=== PATIENT | female | born 1955 | race Caucasian/White ===

== ENCOUNTER 2017-12-28 19:49 | Emergency (ER) | payer BC ==
[2017-12-28] MEDS ORDERED: Ibuprofen TAB* 600 MG PO ONE (20:21)
--- NOTE | 2017-12-28 20:36 | ED ---
Lower Extremity - HPI Summary HPI Summary: Patient comes complains of left ankle pain after twisting it while walking today. Denies any other pain or injuries, loss of sensation or function. - History of Current Complaint Chief Complaint: EDExtremityLower Stated Complaint: LT ANKLE PAIN Time Seen by Provider: 12/28/17 20:32 Hx Obtained From: Patient Mechanism Of Injury: Twisted Onset of Pain: Immediate Onset/Duration: Hours Severity Initially: Moderate Severity Currently: Moderate Pain Intensity: 5 Pain Scale Used: 0-10 Numeric Timing: Constant Location: Is Discrete @ Character Of Pain: Throbbing Associated Signs And Symptoms: Positive: Swelling Aggravating Factor(s): Ambulation, Weight Bearing Alleviating Factor(s): Rest Able to Bear Weight: Yes - Allergies/Home Medications Allergies/Adverse Reactions: Allergies Allergy/AdvReac Type Severity Reaction Status Date / Time Iodinated Contrast- Oral and Allergy Anaphylatic Verified 12/28/17 20:22 IV Dye Shock Sulfa (Sulfonamide Allergy Rash Verified 12/28/17 20:22 Antibiotics) Home Medications: Home Medications Famotidine TAB* [Pepcid 20 MG TAB*] 20 mg PO DAILY 12/28/17 [History Confirmed 12/28/17] PMH/Surg Hx/FS Hx/Imm Hx Endocrine/Hematology History: Denies: Hx Anticoagulant Therapy History: Denies: Hx Dialysis Neurological History: Denies: Hx Dementia - Cancer History Hx Chemotherapy: No Hx Radiation Therapy: No - Immunization History Immunizations Up to Date: Yes Infectious Disease History: No Infectious Disease History: Denies: Traveled Outside the [place] in Last 30 Days - Social History Alcohol Use: Occasionally Substance Use Type: Reports: None Smoking Status (MU): Never Smoked Tobacco Review of Systems Constitutional: Negative Eyes: Negative ENT: Negative Cardiovascular: Negative Respiratory: Negative Gastrointestinal: Negative Genitourinary: Negative Musculoskeletal: Other Skin: Negative Neurological: Negative Psychological: Normal All Other Systems Reviewed And Are Negative: Yes Physical Exam - Summary Physical Exam Summary: Mild swelling to lateral left ankle. PMS intact distally. No erythema, ecchymosis, extra warmth, deformity noted to left ankle. Flexion and extension intact and left knee without pain. Triage Information Reviewed: Yes Vital Signs On Initial Exam: Initial Vitals Temp Pulse Resp BP Pulse Ox 99.5 F 89 16 141/90 98 12/28/17 19:53 12/28/17 19:53 12/28/17 19:53 12/28/17 19:53 12/28/17 19:53 Vital Signs Reviewed: Yes Appearance: Positive: Well-Appearing Skin: Positive: Warm Head/Face: Positive: Normal Head/Face Inspection Eyes: Positive: Normal Neck: Positive: Supple Respiratory/Lung Sounds: Positive: Clear to Auscultation Cardiovascular: Positive: Normal Abdomen Description: Positive: Nontender Musculoskeletal: Positive: Normal Neurological: Positive: Normal Psychiatric: Positive: Normal AVPU Assessment: Alert - Argelia Coma Scale Best Eye Response: 4 - Spontaneous Best Motor Response: 6 - Obeys Commands Best Verbal Response: 5 - Oriented Coma Scale Total: 15 Procedures - Splinting 1 Location: left ankle Hand-Made Type: orthoglass Splint: posterior walking - and stirrup Pre-Proc Neuro Vasc Exam: normal Post-Proc Neuro Vasc Exam: normal Diagnostics - Vital Signs Vital Signs Temp Pulse Resp BP Pulse Ox 12/28/17 19:53 99.5 F 89 16 141/90 98 - Laboratory Lab Statement: Any lab studies that have been ordered have been reviewed, and results considered in the medical decision making process. - Radiology ankle Xray Interpretation: Positive (See Comments) - Distal left fibula fracture nondisplaced Radiology Interpretation Completed By: ED Physician Lower Extremity Course/Dx - Course Course Of Treatment: Patient comes complains of left ankle pain after twisting it while walking today. Denies any other pain or injuries, loss of sensation or function. Physical exam:Mild swelling to lateral left ankle. PMS intact distally. No erythema, ecchymosis, extra warmth, deformity noted to left ankle. Flexion and extension intact and left knee without pain. X-ray positive for distal left fibula fracture nondisplaced. Patient placed in posterior walking and stirrup splint follow-up with orthopedics. Patient supplied with crutches. No weightbearing. - Diagnoses Provider Diagnoses: Fracture of distal end of left fibula Discharge - Sign-Out/Discharge Documenting (check all that apply): Patient Departure - Discharge Plan Condition: Stable Disposition: HOME Patient Education Materials: Ankle Fracture (ED) Referrals: Tomas Carcamo MD [Primary Care Provider] - Kenneth Lopez MD [Medical Doctor] - Additional Instructions: No weightbearing. Ibuprofen for pain. Follow-up with orthopedics Dr. Lopez. Return to the ED for any new or worsening symptoms - Billing Disposition and Condition Condition: STABLE Disposition: Home
[2017-12-28 22:21] VITALS: BP 138/88
--- NOTE | 2017-12-29 07:46 | RAD ---
HISTORY: L ankle pain COMPARISONS: None VIEWS: 3 , Frontal, lateral, and oblique views of the left ankle FINDINGS: BONE DENSITY: Normal. BONES: There is a transverse nondisplaced fracture of the distal fibula with articular extension. JOINTS: There is no arthropathy. ALIGNMENT: There is no dislocation. The tibiotalar and fibular talar intervals are normal. SOFT TISSUES: Unremarkable. OTHER FINDINGS: None. IMPRESSION: TRANSVERSE NONDISPLACED FRACTURE OF THE DISTAL FIBULA R0
== END 2017-12-28 22:20 | disposition home or self-care (01) ==
LOC: ED 19:49
DX: S82.832A Other fracture of upper and lower end of left fibula, initial encounter for closed fracture (principal); M25.572 Pain in left ankle and joints of left foot; X50.9XXA Other and unspecified overexertion or strenuous movements or postures, initial encounter; Y93.01 Activity, walking, marching and hiking; Y92.9 Unspecified place or not applicable
CPT/HCPCS: 99282; A9270-GY

== ENCOUNTER 2019-03-02 07:59 | Emergency (ER) | payer BC ==
--- OUTSIDE RECORDS SUMMARY | 2019-03-02 08:03 | XMS REPORT | Continuity of Care Document ---
:1955 External Reference #:[id number] Author Name Karina Lyons O.D. Address [address] [place] [address] Care Team Providers Name Role Phone Tomas Carcamo M.D. - Endocrinology, Care Team Information [employer] [phone] Diabetes & Metabolism Problems Active Problems Provider Date Rosacea Onset: Herpes zoster Onset: Seasonal allergy Onset: Age related macular degeneration Karina Lyons O.D. Onset: 01/05/2015 Nuclear senile cataract Karina Lyons O.D. Onset: 01/05/2015 Retinal defect Karina Lyons O.D. Onset: 01/05/2015 Vitreous degeneration Natalya German O.D. Onset: 08/17/2015 Nonexudative age-related macular Natalya German O.D. Onset: 09/17/2015 degeneration Bilateral age-related nonexudative macular Karina Lyons O.D. 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 Onset: 03/2018 Social History Type Date Description Comments Sex Unknown ETOH Use Rarely consumes alcohol Tobacco Use Start: Unknown Patient has never smoked Recreational Drug Use Denies Drug Use Smoking Status Reviewed: 01/30/19 Patient has never smoked Allergies, Adverse Reactions, Alerts Active Allergies Reaction Severity Comments Date Iodinated Diagnostic Agents 01/03/2015 Sulfa Antibiotics 01/03/2015 Medications Active Medications SIG Qnty Indications Ordering Provider Date Preservision Areds 2 1 cap by mouth Karina Henry 01/04/2015 Areds twice a day Marisabel Lyons 2 Capsules Vitamin D Unknown 2000Unit Capsules Famotidine Unknown 20mg/2ML Solution Immunizations Description No Information Available Vital Signs Description No Information Available Results Description No Information Available Procedures Description No Information Available Medical Devices Description No Information Available Encounters Description No Information Available Assessments Date Code Description Provider 01/30/2019 H35.3131 Nonexudative age-related macular Karina Lyons O.D. degeneration, bilateral, ea 01/30/2019 H25.13 Age-related nuclear cataract, bilateral Karina Lyons O.D. 01/30/2019 H43.813 Vitreous degeneration, bilateral Karina Lyons O.D. 01/30/2019 H33.311 Horseshoe tear of retina without Karina Lyons O.D. detachment, right eye Plan of Treatment Future Appointment(s):02/03/2020 3:10 pm - Karina Lyons O.D. at [facility] - Karina Lyons O.D.H35.3131 Nonexudative age- related macular degeneration, bilateral, eaComments:CONTINUE TO USE AREDS 2 FORMULA VITAMINSCONTINUE TO CHECK AMSLER GRID 2 X A WEEKFollow up:1 Year Follow Up OCT MAC You can expect to have your eyes dilated at your next visit. If Dr. Lyons orders any additional testing, it may require extra time. We recommend that you bring sunglasses, as dilation drops often make you light sensitive until they wear off. We always recommend you bring someone to drive you home if you are uncomfortable driving with your eyes dilated. If you have any questions before your next visit, feel free to call our office at .H25.13 Age-related nuclear cataract, bilateralComments:You have been diagnosed with cataracts. If you are happy with your vision as it is now, then we willsee you at your next scheduled appointment. If you feel like your vision is getting worse before your scheduled appointment, please call [facility] at [phone].H43.814 Vitreous degeneration, bilateralComments:You have a Posterior Vitreous Detachment. Please read the pamphlet that was given to you. If you have any changes in your floaters or flashing lights, please contact this office.H33.311 Horseshoe tear of retina without detachment, right eyeComments: Smoking can increase the risk of developing or worsening any eye related disease , as well as affect your overall health. If you are a smoker, we strongly recommend that you quit.If you are not a smoker, we strongly recommend that you do not start. Functional Status Description No Information Available Mental Status Description No Information Available Referrals Description No Information Available
[2019-03-02 08:11] VITALS: BP 153/84
[2019-03-02] MEDS ORDERED: Tetracaine 0.5% OPTH.SOL 4 ML* 1 DROP BTL RIGHT EYE ONE (08:13)
[2019-03-02] MEDS ORDERED: Fluorescein Sodium TOPICAL* 1 MG TEST STRIP OPHTHALMIC ONE (08:13)
--- NOTE | 2019-03-02 08:20 | UC ---
Eye Complaint HPI - HPI Summary HPI Summary: 63-year-old female presents with plaints of right eye pain. States at approximately 6:00 this morning she was pulling up the quilt on her bed and accidentally struck herself in the right eye with the edge of the quilt. Complains of constant, sharp pain to the right eye with foreign body sensation, tearing, and photophobia. Denies blurred vision or double vision. - History of Current Complaint Chief Complaint: UCEye Stated Complaint: EYE COMPLAINT Time Seen by Provider: 03/02/19 08:13 Hx Obtained From: Patient Pain Intensity: 6 Eyes: 1 - Right eye 2 - Corneal abrasion - Allergies/Home Medications Allergies/Adverse Reactions: Allergies Allergy/AdvReac Type Severity Reaction Status Date / Time Iodinated Contrast Media Allergy Anaphylatic Verified 03/02/19 08:03 [Iodinated Contrast- Oral Shock and IV Dye] Sulfa (Sulfonamide Allergy Rash Verified 03/02/19 08:03 Antibiotics) PMH/Surg Hx/FS Hx/Imm Hx Previously Healthy: Yes GI/ History: Gastroesophageal Reflux Other History Of: Negative For: Anticoagulant Therapy - Surgical History Surgical History: Yes Surgery Procedure, Year, and Place: T&A. . bilat carpal tunnel. thumb release. jaw resection - Family History Known Family History: Positive: Non-Contributory - Social History Occupation: Employed Full-time Lives: With Family Alcohol Use: Occasionally Substance Use Type: None Smoking Status (MU): Never Smoked Tobacco Review of Systems All Other Systems Reviewed And Are Negative: Yes Constitutional: Positive: Negative Skin: Positive: Negative Eyes: Positive: Drainage - Tearing, Eye Redness, Photophobia. Negative: Blurred Vision, Diplopia ENT: Positive: Negative Respiratory: Positive: Negative Cardiovascular: Positive: Negative Gastrointestinal: Positive: Negative Genitourinary: Positive: Negative Musculoskeletal: Positive: Negative Neurological: Positive: Negative Is Patient Immunocompromised?: No Physical Exam - Summary Physical Exam Summary: GENERAL APPEARANCE: Well developed, well nourished, alert and cooperative, and appears to be in no acute distress. EYES: Left conjunctiva clear. No drainage. Right conjuctiva with mild erythema and tearing. PERRL, EOM intact. Vision is grossly intact. Tetracaine and fluorosceine were instilled into the right eye. Examination under magnification with a Wood's lamp showed a large circular corneal abrasion centrally that does extend over the visual field. No FB or penetrating injury noted. EARS: External auditory canals and tympanic membranes clear, hearing grossly intact. NOSE: No nasal discharge. THROAT: Pharynx normal. Surgically absent tonsils. Uvula midline. NECK: Neck supple, non-tender without lymphadenopathy. CARDIAC: Normal S1 and S2. No S3, S4 or murmurs. Rhythm is regular. There is no peripheral edema, cyanosis or pallor. Extremities are warm and well perfused. Capillary refill is less than 2 seconds. Peripheral pulses intact. LUNGS: Clear to auscultation without rales, rhonchi, wheezing or diminished breath sounds. ABDOMEN: Positive bowel sounds. Soft, nondistended, nontender. No guarding or rebound. No masses or hepatosplenomegally. MUSKULOSKELETAL: ROM intact to all extremities. No joint erythema or tenderness. Normal muscular development. Normal gait. SKIN: Skin normal color, texture and turgor with no lesions or eruptions. Triage Information Reviewed: Yes Vital Signs: Initial Vital Signs Temp 98.2 F 03/02/19 08:04 Pulse 81 03/02/19 08:04 Resp 18 03/02/19 08:04 BP 153/84 03/02/19 08:04 Pulse Ox 100 03/02/19 08:04 Vital Signs Reviewed: Yes Eye Complaint Course/Dx - Course Course Of Treatment: 63-year-old female presents with plaints of right eye pain. States at approximately 6:00 this morning she was pulling up the quilt on her bed and accidentally struck herself in the right eye with the edge of the quilt. Complains of constant, sharp pain to the right eye with foreign body sensation, tearing, and photophobia. Denies blurred vision or double vision. Afebrile. Hypertensive otherwise vital signs stable. Gross examination of the right eye showed mild conjunctival erythema and tearing. After instilling tetracaine and fluorescein the right eye was examined under magnification with a Wood's lamp which revealed revealed a large circular corneal abrasion to the center of the right eye that did extend over the visual field. No foreign body or penetrating injury was noted. Remainder of exam was unremarkable. Patient was given ibuprofen 600 mg for pain and erythromycin ophthalmic ointment was instilled into the right eye. She was instructed to continue to use the erythromycin ointment 4 times a day for 7 days or until instructed to stop by ophthalmology. She is to follow-up with ophthalmology in 2 days for a recheck of the eye. Anticipatory guidance and warning symptoms are reviewed with the patient. Verbalizes understanding and agrees with plan of care. - Differential Dx/Diagnosis Differential Diagnosis/HQI/PQRI: Corneal Abrasion, Penetrating Injury Provider Diagnosis: Right corneal abrasion Discharge ED - Sign-Out/Discharge Documenting (check all that apply): Patient Departure All imaging exams completed and their final reports reviewed: No Studies - Discharge Plan Condition: Stable Disposition: HOME Patient Education Materials: Corneal Abrasion (ED) Referrals: Tomas Carcamo MD [Primary Care Provider] - Jose Rafael Barclay MD [Medical Doctor] - 2 Days (Call Monday for an appointment.) Additional Instructions: You were exam shows a corneal abrasion of the right eye. Use erythromycin ophthalmic ointment. Instill a ribbon of ointment to the inner lower lid 4 times a day and then blink to spread it around the eye. You should do this for at least 7 days or until instructed to stop. Take ibuprofen 600 mg every 8 hours as needed for pain. We gave you a dose at around 8:30 this morning. Follow-up with ophthalmology in 2 days for recheck of the eye. Pulmonary morning for an appointment. Seek immediate medical attention in the emergency room if you have severe pain that is not managed with pain medication, visual disturbances, visual loss, swelling of the eye, purulent drainage from the eye, or any worsening of symptoms. - Billing Disposition and Condition Condition: STABLE Disposition: Home
[2019-03-02] MEDS ORDERED: Erythromycin OPTH OINT* APPLIC OINT RIGHT EYE ONE (08:32)
[2019-03-02] MEDS ORDERED: Ibuprofen TAB* 600 MG PO ONE (08:32)
== END 2019-03-02 08:51 | disposition home or self-care (01) ==
LOC: UCEAST 07:59
DX: S05.01XA Injury of conjunctiva and corneal abrasion without foreign body, right eye, initial encounter (principal); Z88.2 Allergy status to sulfonamides; Z91.041 Radiographic dye allergy status; W22.8XXA Striking against or struck by other objects, initial encounter; Y92.9 Unspecified place or not applicable
CPT/HCPCS: 99213; A9270-GY; G0463